=== PATIENT | male | born 1990 | race Two or more races ===

== ENCOUNTER 2023-08-25 11:35 | Emergency (ER) | payer OTHER ==
[~2023-08-25] VITALS: Ht 172.7 cm; Wt 77.4 kg
[2023-08-25] MEDS ORDERED: IBUP-1455 PO (16:48)
[2023-08-25] MEDS ORDERED: AMOX875T4 PO (16:48)
[2023-08-25 17:01] VITALS: BP 140/97; PULSE 55; RESP 18; TEMP 97.4; O2SAT 100
== END 2023-08-25 17:02 | disposition home or self-care (01) ==
LOC: ER 11:35
DX: J32.0 Chronic maxillary sinusitis (principal)

== ENCOUNTER 2024-04-26 02:56 | Emergency (ER) | payer BC, OTHER ==
[~2024-04-26] VITALS: Ht 170.2 cm; Wt 75.6 kg
[~2024-04-26 02:56] MED LIST: AMOX875T4 PO; IBUP-1455 PO
[2024-04-26] MEDS: IBUPROFEN 600 MG TAB PO ONE (03:32)
[2024-04-26] MEDS ORDERED: CYCL-837 PO (03:39)
[2024-04-26] MEDS ORDERED: ACET500T58 PO (03:39)
[2024-04-26 03:43] VITALS: BP 125/82; PULSE 63; RESP 18; TEMP 97.9; O2SAT 99
== END 2024-04-26 05:04 | disposition home or self-care (01) ==
LOC: ER 02:56
DX: S46.912A Strain of unspecified muscle, fascia and tendon at shoulder and upper arm level, left arm, initial encounter (principal); S50.02XA Contusion of left elbow, initial encounter; Z79.2 Long term (current) use of antibiotics; Z79.899 Other long term (current) drug therapy; V69.49XA Driver of heavy transport vehicle injured in collision with other motor vehicles in traffic accident, initial encounter; Y93.89 Activity, other specified; Y92.89 Other specified places as the place of occurrence of the external cause; Y99.8 Other external cause status
CPT/HCPCS: 73000; 73080